=== PATIENT | male | born 1960 | race Caucasian/White ===

== ENCOUNTER 2019-07-16 14:19 | Inpatient (IN) | payer BC ==
[~2019-07-16] VITALS: Ht 185.4 cm; Wt 137.7 kg
[2019-07-16] MEDS ORDERED: SODIUM CHLORIDE FLUSH 10ML SYR IVF ONE (14:30)
[2019-07-16] MEDS ORDERED: THIAMINE 100MG TABLET PO ONE (14:30)
[2019-07-16] MEDS ORDERED: SODIUM CHLORIDE 0.9% 1,000ML IVBOLUS ONE ×2 (14:30→16:30)
--- NOTE | 2019-07-16 14:58 | NUR ---
PT UPRIGHT ON GURNEY AWAKE & COMFORTABLE, RESPONDS APPROP TO STAFF, HICCUPING BUT NAD, COMFORT MEASURES PROVIDED, AT BS, CALL LIGHT WITHIN REACH. 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
[2019-07-16] MEDS ORDERED: THIAMINE 100MG TABLET ONE (15:00)
[2019-07-16 15:06] LABS: BASOPHILS # (AUTO) 0.01 x10^3/uL (0-0.1); BASOPHILS % (AUTO) 0 % (0-1); EOSINOPHILS % (AUTO) 0 % (1-7); LYMPHOCYTES # (AUTO) 2.08 x10^3/uL (1-3.4); LYMPHOCYTES % (AUTO) 21 % (22-44); MD NO; MEAN CORPUSCULAR HEMOGLOBIN 28.8 pg (27.5-34.5); MEAN CORPUSCULAR HGB CONC 32.6 g/dL (33.2-36.2); MEAN CORPUSCULAR VOLUME 88.4 fL (81-97); MEAN PLATELET VOLUME 7.9 fL (7.4-10.4); MONOCYTES # (AUTO) 0.76 x10^3/uL (0.2-0.8); MONOCYTES % (AUTO) 8 % (2-9); NEUTROPHILS # (AUTO) 7.02 x10^3/uL (1.8-6.8); NEUTROPHILS % (AUTO) 71 % (42-75); PLATELET COUNT 303 x10^3/uL (130-400); RED BLOOD COUNT 5.33 x10^6/uL (4.38-5.82); RED CELL DISTRIBUTION WIDTH 14.7 % (9.4-14.8)
[2019-07-16 15:18] LABS: ALBUMIN 3.5 g/dL (3.4-5.0); ANION GAP 11 mmol/L (5-15); CALCIUM 8.6 mg/dL (8.5-10.1); CHLORIDE 100 mmol/L (98-107)
[2019-07-16 15:22] LABS: ALANINE AMINOTRANSFERASE 66 U/L (12-78); ALKALINE PHOSPHATASE 65 U/L (45-117); BILIRUBIN,TOTAL 2.6 mg/dL (0.2-1.0); CREATININE 1.09 mg/dL (0.7-1.3); TOTAL PROTEIN 7.7 g/dL (6.4-8.2)
--- NOTE | 2019-07-16 16:05 | NUR ---
PT REMAINS UPRIGHT ON GURNEY AWAKE & COMFORTABLE, RESPONDS APPROP TO STAFF, NAD, COMFORT MEASURES PROVIDED, AT BS, CALL LIGHT WITHIN REACH.
[2019-07-16] MEDS ORDERED: CEFTRIAXONE PMX 1GM/50ML 50 ML IVPB ONE (17:00)
[2019-07-16] MEDS ORDERED: AZITHROMYCIN 500 MG in SODIUM CHLORIDE 0.9% 250 ML IV ONE (17:00)
--- NOTE | 2019-07-16 17:05 | NUR ---
PT UPRIGHT ON GURNEY AWAKE & COMFORTABLE, ABLE TO DOZE OFF, RESPONDS APPROP TO STAFF, NAD, COMFORT MEASURES PROVIDED, AT BS, CALL LIGHT WITHIN REACH.
[2019-07-16] MEDS ORDERED: CEFTRIAXONE PMX 1GM/50ML 50 ML ONE (17:07)
[2019-07-16] MEDS ORDERED: LORazepam 2 MG/ML, 1ML ONE (17:08)
[2019-07-16] MEDS: LORazepam 2 MG/ML, 1ML IVPush PRN ×2 (17:11→17:52)
--- NOTE | 2019-07-16 17:44 | NUR ---
Pt to be admitted to [facility], room 491-2. Report called to Ankita.
[2019-07-16 17:53] LABS: ACETONE, SERUM Small (20mg/dL) mg/dL (Negative)
[2019-07-16 18:11] VITALS: BP 119/65
[2019-07-16] MEDS ORDERED: METO200T47 PO (18:38)
[2019-07-16] MEDS ORDERED: PRAV40TA2 PO (18:38)
[2019-07-16] MEDS ORDERED: GABA300C10 PO (18:38)
[2019-07-16] MEDS ORDERED: FAMO-79 PO (18:38)
[2019-07-16] MEDS ORDERED: EMPA10TA PO (18:38)
[2019-07-16] MEDS ORDERED: DEXTROSE 50%, 50ML SYRINGE IVPush PRN (19:00)
[2019-07-16] MEDS ORDERED: LORazepam 1MG TABLET PO PRN ×4 (19:00)
[2019-07-16] MEDS ORDERED: THIAMINE 200 MG, MVI ADULT 10 ML, FOLIC ACID 1 MG in D5%-0.9% NACL 1,000 ML IV SCH (19:00)
[2019-07-16] MEDS ORDERED: BISACODYL 10 MG SUPP PR PRN (19:00)
[2019-07-16] MEDS ORDERED: DOCUSATE 100 MG CAPSULE PO PRN (19:00)
[2019-07-16] MEDS ORDERED: DEXTROSE 4 GM TAB.CHEW PO PRN (19:00)
[2019-07-16] MEDS ORDERED: CHLORDIAZEPOXIDE 25 MG CAPSULE PO SCH (19:00)
[2019-07-16] MEDS ORDERED: GLUCAGON 1 MG IM PRN (19:00)
[2019-07-16] MEDS ORDERED: POLYETHYLENE GLYCOL 17 GM PACKET PO PRN (19:00)
[2019-07-16 19:58] LABS: TROPONIN I 0.613 ng/mL (0.000-0.045)
[2019-07-16] MEDS ORDERED: OMNIPAQUE 350 MG/ML, 100ML BOTTLE ONE (20:16)
[2019-07-16] MEDS: PRAVASTATIN 40 MG TABLET PO SCH (20:56)
[2019-07-16] MEDS: ENOXAPARIN 40 MG/0.4 ML SQ SCH (20:56)
[2019-07-16] MEDS: SODIUM CHLORIDE FLUSH 10ML SYR IVF SCH (20:57)
[2019-07-16] MEDS: CHLORDIAZEPOXIDE 25 MG CAPSULE PO SCH (20:57)
[2019-07-16] MEDS: INSULIN LISPRO 100 UNITS/ML, PEN SQ-INSULIN SCH (20:57)
[2019-07-16] MEDS ORDERED: FUROSEMIDE 20 MG/2 ML IV ONE (21:00)
[2019-07-17 01:55] LABS: TROPONIN I 0.519 ng/mL (0.000-0.045)
[2019-07-17] MEDS: CHLORDIAZEPOXIDE 25 MG CAPSULE PO SCH ×4 (02:14→19:43)
[2019-07-17 03:35] VITALS: BP 110/63
[2019-07-17] MEDS: METOPROLOL SUCCINATE 25 MG TAB.ER.24H PO SCH (06:00)
[2019-07-17] MEDS: LORazepam 0.5MG TABLET PO PRN ×2 (06:00→08:29)
[2019-07-17 06:25] LABS: BASOPHILS # (AUTO) 0.02 x10^3/uL (0-0.1); BASOPHILS % (AUTO) 0 % (0-1); EOSINOPHILS # (AUTO) 0.02 x10^3/uL (0-0.4); EOSINOPHILS % (AUTO) 0 % (1-7); LYMPHOCYTES # (AUTO) 3.13 x10^3/uL (1-3.4); LYMPHOCYTES % (AUTO) 32 % (22-44); MD NO; MEAN CORPUSCULAR HEMOGLOBIN 29.1 pg (27.5-34.5); MEAN CORPUSCULAR HGB CONC 32.8 g/dL (33.2-36.2); MEAN CORPUSCULAR VOLUME 88.8 fL (81-97); MEAN PLATELET VOLUME 7.8 fL (7.4-10.4); MONOCYTES # (AUTO) 0.75 x10^3/uL (0.2-0.8); MONOCYTES % (AUTO) 8 % (2-9); NEUTROPHILS # (AUTO) 5.73 x10^3/uL (1.8-6.8); NEUTROPHILS % (AUTO) 59 % (42-75); PLATELET COUNT 227 x10^3/uL (130-400); RED BLOOD COUNT 4.74 x10^6/uL (4.38-5.82); RED CELL DISTRIBUTION WIDTH 14.8 % (9.4-14.8)
[2019-07-17] MEDS: INSULIN LISPRO 100 UNITS/ML, PEN SQ-INSULIN SCH ×4 (07:00→20:55)
[2019-07-17 07:24] LABS: ALANINE AMINOTRANSFERASE 71 U/L (12-78); ANION GAP 13 mmol/L (5-15); CALCIUM 7.9 mg/dL (8.5-10.1); CHLORIDE 101 mmol/L (98-107); CREATININE 1.08 mg/dL (0.7-1.3)
[2019-07-17 07:28] LABS: ALKALINE PHOSPHATASE 54 U/L (45-117); BILIRUBIN,TOTAL 2.3 mg/dL (0.2-1.0); TOTAL PROTEIN 6.4 g/dL (6.4-8.2); TROPONIN I 0.489 ng/mL (0.000-0.045)
[2019-07-17 07:45] VITALS: BP 118/75
[2019-07-17] MEDS ORDERED: FAMOTIDINE 40 MG TABLET ONE ×2 (08:25→20:44)
[2019-07-17] MEDS: SODIUM CHLORIDE FLUSH 10ML SYR IVF SCH ×2 (08:31→20:55)
[2019-07-17] MEDS ORDERED: FAMOTIDINE 20 MG TABLET PO SCH (09:00)
[2019-07-17] MEDS: LORazepam 2 MG/ML, 1ML IV PRN ×5 (10:22→21:54)
[2019-07-17] MEDS ORDERED: LORazepam 2 MG/ML, 1ML IV PRN ×2 (10:30)
[2019-07-17 13:12] VITALS: BP 118/81
[2019-07-17] MEDS: CEFTRIAXONE PMX 1GM/50ML 50 ML IV SCH (17:01)
[2019-07-17] MEDS: ACETAMINOPHEN 325 MG TABLET PO PRN (17:21)
[2019-07-17] MEDS: ASPIRIN 81 MG TABLET EC PO SCH (17:30)
[2019-07-17] MEDS ORDERED: MAGNESIUM OXIDE 400 MG TABLET PO ONE (18:00)
[2019-07-17 20:08] VITALS: BP 149/86
[2019-07-17] MEDS: AZITHROMYCIN 500 MG in SODIUM CHLORIDE 0.9% 250 ML IV SCH (20:53)
[2019-07-17] MEDS: FAMOTIDINE 20 MG TABLET PO SCH (20:54)
[2019-07-17] MEDS: NEUTRA PHOS K 250 MG TABLET PO SCH (20:54)
[2019-07-17] MEDS: ENOXAPARIN 40 MG/0.4 ML SQ SCH (20:54)
[2019-07-17] MEDS: PRAVASTATIN 40 MG TABLET PO SCH (20:54)
[2019-07-17 23:49] VITALS: BP 128/86
[2019-07-18 01:00] VITALS: BP 114/79
[2019-07-18] MEDS: CHLORDIAZEPOXIDE 25 MG CAPSULE PO SCH ×4 (01:26→19:35)
[2019-07-18] MEDS: LORazepam 2 MG/ML, 1ML IV PRN ×5 (02:20→20:59)
[2019-07-18] MEDS: LABETALOL 5MG/ML, 20ML IVPush PRN ×3 (02:40→03:35)
[2019-07-18] MEDS: ASPIRIN 81 MG TABLET EC PO SCH (04:57)
[2019-07-18] MEDS: METOPROLOL SUCCINATE 25 MG TAB.ER.24H PO SCH (04:58)
[2019-07-18 04:59] VITALS: BP 104/66
[2019-07-18 05:52] LABS: ANION GAP 13 mmol/L (5-15); CALCIUM 8.3 mg/dL (8.5-10.1); CHLORIDE 99 mmol/L (98-107); CREATININE 0.95 mg/dL (0.7-1.3)
[2019-07-18 05:53] LABS: BASOPHILS # (AUTO) 0.01 x10^3/uL (0-0.1); BASOPHILS % (AUTO) 0 % (0-1); EOSINOPHILS % (AUTO) 0 % (1-7); LYMPHOCYTES # (AUTO) 1.11 x10^3/uL (1-3.4); LYMPHOCYTES % (AUTO) 9 % (22-44); MD NO; MEAN CORPUSCULAR HEMOGLOBIN 28.8 pg (27.5-34.5); MEAN CORPUSCULAR HGB CONC 31.9 g/dL (33.2-36.2); MEAN CORPUSCULAR VOLUME 90.2 fL (81-97); MONOCYTES # (AUTO) 0.84 x10^3/uL (0.2-0.8); MONOCYTES % (AUTO) 7 % (2-9); NEUTROPHILS # (AUTO) 10.97 x10^3/uL (1.8-6.8); NEUTROPHILS % (AUTO) 85 % (42-75); PLATELET COUNT 213 x10^3/uL (130-400); RED BLOOD COUNT 5.22 x10^6/uL (4.38-5.82); RED CELL DISTRIBUTION WIDTH 14.8 % (9.4-14.8)
[2019-07-18 06:04] LABS: TROPONIN I 0.193 ng/mL (0.000-0.045)
[2019-07-18] MEDS ORDERED: POTASSIUM CHLORIDE 20 MEQ TAB.ER.PRT PO ONE (06:30)
[2019-07-18 06:45] VITALS: BP 111/67
[2019-07-18] MEDS: INSULIN LISPRO 100 UNITS/ML, PEN SQ-INSULIN SCH ×4 (07:00→21:00)
[2019-07-18] MEDS ORDERED: FAMOTIDINE 40 MG TABLET ONE ×2 (08:04→22:01)
[2019-07-18] MEDS: NEUTRA PHOS K 250 MG TABLET PO SCH ×2 (08:10→22:10)
[2019-07-18] MEDS: SODIUM CHLORIDE FLUSH 10ML SYR IVF SCH ×2 (08:11→21:00)
[2019-07-18] MEDS: FAMOTIDINE 20 MG TABLET PO SCH ×2 (08:12→22:12)
[2019-07-18] MEDS ORDERED: METOPROLOL SUCCINATE 25 MG TAB.ER.24H PO ONE (09:00)
[2019-07-18 12:32] LABS: ALBUMIN 2.9 g/dL (3.4-5.0); BILIRUBIN, DIRECT 0.9 mg/dL (0.1-0.2)
[2019-07-18 12:34] LABS: BILIRUBIN,INDIRECT 2.2 mg/dL (0.0-2.0); BILIRUBIN,TOTAL 3.1 mg/dL (0.2-1.0); TOTAL PROTEIN 6.7 g/dL (6.4-8.2)
[2019-07-18 14:00] VITALS: BP 119/78
[2019-07-18] MEDS ORDERED: SODIUM CHLORIDE 0.9% 1,000 ML IV SCH (14:00)
[2019-07-18] MEDS ORDERED: metroNIDAZOLE 5 MG/ML INJ 500 MG in SYRINGE 1 EA IV SCH (14:01)
[2019-07-18] MEDS ORDERED: LABETALOL 5 MG/ML SYR. (IV ONLY) IVPush PRN (16:30)
[2019-07-18] MEDS: METRONIDAZOLE PMX 500MG/100ML 100 ML IVPB SCH (16:57)
[2019-07-18] MEDS: CEFTRIAXONE PMX 1GM/50ML 50 ML IV SCH (17:54)
[2019-07-18] MEDS: AZITHROMYCIN 500 MG in SODIUM CHLORIDE 0.9% 250 ML IV SCH (19:34)
[2019-07-18 21:27] VITALS: BP 109/77
[2019-07-18] MEDS: PRAVASTATIN 40 MG TABLET PO SCH (22:11)
[2019-07-18] MEDS: ENOXAPARIN 40 MG/0.4 ML SQ SCH (22:11)
[2019-07-19] MEDS: METRONIDAZOLE PMX 500MG/100ML 100 ML IVPB SCH ×3 (01:05→15:52)
[2019-07-19 02:52] VITALS: BP 115/74
[2019-07-19] MEDS: CHLORDIAZEPOXIDE 25 MG CAPSULE PO SCH ×3 (03:07→15:51)
[2019-07-19 06:00] VITALS: BP 111/73
[2019-07-19] MEDS ORDERED: METOPROLOL SUCCINATE 50 MG TAB.ER.24H PO SCH (06:00)
[2019-07-19] MEDS: ASPIRIN 81 MG TABLET EC PO SCH (06:29)
[2019-07-19 08:47] LABS: BASOPHILS % (AUTO) 0 % (0-1); EOSINOPHILS # (AUTO) 0.09 x10^3/uL (0-0.4); EOSINOPHILS % (AUTO) 1 % (1-7); LYMPHOCYTES # (AUTO) 1.55 x10^3/uL (1-3.4); LYMPHOCYTES % (AUTO) 12 % (22-44); MD NO; MEAN CORPUSCULAR HEMOGLOBIN 29.2 pg (27.5-34.5); MEAN CORPUSCULAR HGB CONC 32.8 g/dL (33.2-36.2); MEAN CORPUSCULAR VOLUME 88.9 fL (81-97); MEAN PLATELET VOLUME 7.9 fL (7.4-10.4); MONOCYTES # (AUTO) 0.74 x10^3/uL (0.2-0.8); MONOCYTES % (AUTO) 6 % (2-9); NEUTROPHILS # (AUTO) 10.92 x10^3/uL (1.8-6.8); NEUTROPHILS % (AUTO) 82 % (42-75); PLATELET COUNT 203 x10^3/uL (130-400); RED BLOOD COUNT 4.88 x10^6/uL (4.38-5.82); RED CELL DISTRIBUTION WIDTH 14.6 % (9.4-14.8)
[2019-07-19] MEDS: INSULIN LISPRO 100 UNITS/ML, PEN SQ-INSULIN SCH ×4 (09:11→21:00)
[2019-07-19] MEDS ORDERED: FAMOTIDINE 40 MG TABLET ONE ×2 (09:11→09:16)
[2019-07-19] MEDS: SODIUM CHLORIDE FLUSH 10ML SYR IVF SCH ×2 (09:12→21:41)
[2019-07-19] MEDS: FAMOTIDINE 20 MG TABLET PO SCH ×2 (09:25→21:41)
[2019-07-19 09:40] LABS: ALANINE AMINOTRANSFERASE 47 U/L (12-78); ALBUMIN 2.5 g/dL (3.4-5.0); ANION GAP 9 mmol/L (5-15); CALCIUM 8.1 mg/dL (8.5-10.1); CHLORIDE 102 mmol/L (98-107)
[2019-07-19 09:43] LABS: ALKALINE PHOSPHATASE 60 U/L (45-117); BILIRUBIN,TOTAL 2.7 mg/dL (0.2-1.0); TOTAL PROTEIN 6.1 g/dL (6.4-8.2)
[2019-07-19] MEDS: LORazepam 2 MG/ML, 1ML IV PRN ×2 (10:55→22:00)
[2019-07-19] MEDS ORDERED: HEPARIN 5,000 UNITS/ML, 1ML IV ONE ×2 (12:30→18:30)
[2019-07-19] MEDS ORDERED: HEPARIN 25,000 UNITS/500ML PMX 500 ML IV PRN (12:30)
[2019-07-19] MEDS: METOPROLOL TARTRATE 25 MG TABLET PO SCH ×2 (12:40→18:06)
[2019-07-19] MEDS: DIGOXIN 0.25 MG/ML, 2ML IVPush SCH ×2 (12:41→18:07)
[2019-07-19 13:56] LABS: CHOL/HDL RATIO 2.1; LDL/HDL RATIO 0.8 (0.5-3.0)
[2019-07-19 14:25] VITALS: BP 112/75
[2019-07-19] MEDS ORDERED: METOPROLOL SUCCINATE 25 MG TAB.ER.24H PO ONE (14:30)
[2019-07-19] MEDS: SODIUM CHLORIDE 0.9% 1,000 ML IV SCH (15:55)
[2019-07-19 16:04] VITALS: BP 112/74
[2019-07-19] MEDS ORDERED: LIDODERM 5% PATCH TD SCH (16:30)
[2019-07-19] MEDS: CEFTRIAXONE PMX 1GM/50ML 50 ML IV SCH (17:06)
[2019-07-19 19:45] VITALS: BP 102/64
[2019-07-19] MEDS: AZITHROMYCIN 500 MG in SODIUM CHLORIDE 0.9% 250 ML IV SCH (21:40)
[2019-07-19] MEDS: PRAVASTATIN 40 MG TABLET PO SCH (21:41)
[2019-07-19] MEDS: ATORVASTATIN 40 MG TABLET PO SCH (21:41)
[2019-07-20 00:09] VITALS: BP 100/62
[2019-07-20] MEDS: DIGOXIN 0.25 MG/ML, 2ML IVPush SCH (00:11)
[2019-07-20] MEDS: METRONIDAZOLE PMX 500MG/100ML 100 ML IVPB SCH ×3 (00:11→14:30)
[2019-07-20] MEDS: METOPROLOL TARTRATE 25 MG TABLET PO SCH ×4 (00:12→17:00)
[2019-07-20] MEDS: HEPARIN 5,000 UNITS/ML, 1ML IV PRN ×2 (01:39→10:34)
[2019-07-20 02:03] LABS: CLOSTRIDIUM DIFFICILE ANTIGEN NEGATIVE; CLOSTRIDIUM DIFFICILE TOXIN NEGATIVE (Negative)
[2019-07-20 05:26] VITALS: BP 105/72
[2019-07-20] MEDS: ASPIRIN 81 MG TABLET EC PO SCH (05:41)
[2019-07-20] MEDS: LORazepam 2 MG/ML, 1ML IV PRN ×3 (05:41→20:02)
[2019-07-20] MEDS: INSULIN LISPRO 100 UNITS/ML, PEN SQ-INSULIN SCH ×4 (07:00→21:00)
[2019-07-20] MEDS: SODIUM CHLORIDE 0.9% 1,000 ML IV SCH ×3 (08:00→14:31)
[2019-07-20 08:31] LABS: ANION GAP 7 mmol/L (5-15); BASOPHILS # (AUTO) 0.02 x10^3/uL (0-0.1); BASOPHILS % (AUTO) 0 % (0-1); CALCIUM 8.3 mg/dL (8.5-10.1); CHLORIDE 103 mmol/L (98-107); CREATININE 0.81 mg/dL (0.7-1.3); EOSINOPHILS # (AUTO) 0.29 x10^3/uL (0-0.4); EOSINOPHILS % (AUTO) 3 % (1-7); LYMPHOCYTES # (AUTO) 1.64 x10^3/uL (1-3.4); LYMPHOCYTES % (AUTO) 15 % (22-44); MD NO; MEAN CORPUSCULAR HEMOGLOBIN 29.1 pg (27.5-34.5); MEAN CORPUSCULAR HGB CONC 32.6 g/dL (33.2-36.2); MEAN CORPUSCULAR VOLUME 89.4 fL (81-97); MEAN PLATELET VOLUME 8.1 fL (7.4-10.4); MONOCYTES # (AUTO) 0.63 x10^3/uL (0.2-0.8); MONOCYTES % (AUTO) 6 % (2-9); NEUTROPHILS # (AUTO) 8.76 x10^3/uL (1.8-6.8); NEUTROPHILS % (AUTO) 77 % (42-75); PLATELET COUNT 196 x10^3/uL (130-400); RED BLOOD COUNT 4.84 x10^6/uL (4.38-5.82); RED CELL DISTRIBUTION WIDTH 15.1 % (9.4-14.8)
[2019-07-20] MEDS: SODIUM CHLORIDE FLUSH 10ML SYR IVF SCH ×2 (09:00→21:27)
[2019-07-20] MEDS: FAMOTIDINE 20 MG TABLET PO SCH ×2 (09:00→21:26)
[2019-07-20] MEDS ORDERED: REGADENOSON 0.4 MG/5 ML SYRINGE ONE (09:15)
[2019-07-20 12:55] VITALS: BP 112/72
[2019-07-20] MEDS: LORazepam 0.5MG TABLET PO PRN (13:53)
[2019-07-20] MEDS ORDERED: DIGOXIN 0.25 MG TABLET PO ONE (15:30)
[2019-07-20] MEDS: CEFTRIAXONE PMX 1GM/50ML 50 ML IV SCH (17:00)
[2019-07-20 19:39] VITALS: BP 102/72
[2019-07-20] MEDS: ATORVASTATIN 40 MG TABLET PO SCH (21:26)
[2019-07-20] MEDS: PRAVASTATIN 40 MG TABLET PO SCH (21:26)
[2019-07-20] MEDS: AZITHROMYCIN 500 MG in SODIUM CHLORIDE 0.9% 250 ML IV SCH (21:26)
[2019-07-20] MEDS: APIXABAN 5 MG TABLET PO SCH (21:26)
[2019-07-21] MEDS: METOPROLOL TARTRATE 25 MG TABLET PO SCH ×2 (00:16→06:29)
[2019-07-21] MEDS: LORazepam 2 MG/ML, 1ML IV PRN (00:16)
[2019-07-21] MEDS: SODIUM CHLORIDE 0.9% 1,000 ML IV SCH (00:16)
[2019-07-21] MEDS: METRONIDAZOLE PMX 500MG/100ML 100 ML IVPB SCH ×4 (00:16→23:11)
[2019-07-21 02:46] VITALS: BP 104/74
[2019-07-21 05:42] LABS: CALCIUM 8.3 mg/dL (8.5-10.1); CHLORIDE 104 mmol/L (98-107)
[2019-07-21 05:47] LABS: ANION GAP 5 mmol/L (5-15); CREATININE 0.93 mg/dL (0.7-1.3)
[2019-07-21] MEDS: LORazepam 0.5MG TABLET PO PRN (06:29)
[2019-07-21] MEDS: ASPIRIN 81 MG TABLET EC PO SCH (06:29)
[2019-07-21 07:13] LABS: BASOPHILS # (AUTO) 0.03 x10^3/uL (0-0.1); BASOPHILS % (AUTO) 0 % (0-1); EOSINOPHILS # (AUTO) 0.34 x10^3/uL (0-0.4); EOSINOPHILS % (AUTO) 4 % (1-7); LYMPHOCYTES # (AUTO) 1.79 x10^3/uL (1-3.4); LYMPHOCYTES % (AUTO) 19 % (22-44); MD NO; MEAN CORPUSCULAR HEMOGLOBIN 28.9 pg (27.5-34.5); MEAN CORPUSCULAR VOLUME 90.1 fL (81-97); MONOCYTES % (AUTO) 7 % (2-9); NEUTROPHILS # (AUTO) 6.65 x10^3/uL (1.8-6.8); NEUTROPHILS % (AUTO) 70 % (42-75); PLATELET COUNT 216 x10^3/uL (130-400); RED BLOOD COUNT 4.64 x10^6/uL (4.38-5.82); RED CELL DISTRIBUTION WIDTH 15.3 % (9.4-14.8)
[2019-07-21] MEDS: INSULIN LISPRO 100 UNITS/ML, PEN SQ-INSULIN SCH ×4 (07:27→20:33)
[2019-07-21 07:48] VITALS: BP 103/73
[2019-07-21] MEDS: SODIUM CHLORIDE FLUSH 10ML SYR IVF SCH ×2 (08:15→20:32)
[2019-07-21] MEDS: APIXABAN 5 MG TABLET PO SCH ×2 (08:15→20:32)
[2019-07-21] MEDS: FAMOTIDINE 20 MG TABLET PO SCH ×2 (08:15→20:32)
[2019-07-21] MEDS: METOPROLOL SUCCINATE 100 MG TAB.ER.24H PO SCH (12:28)
[2019-07-21] MEDS: ACETAMINOPHEN 325 MG TABLET PO PRN (12:58)
[2019-07-21] MEDS: ONDANSETRON 2MG/ML, 2ML IVPush PRN (13:20)
[2019-07-21 14:05] VITALS: BP 119/82
[2019-07-21] MEDS: CEFTRIAXONE PMX 1GM/50ML 50 ML IV SCH (17:49)
[2019-07-21 19:41] VITALS: BP 122/88
[2019-07-21] MEDS: ATORVASTATIN 40 MG TABLET PO SCH (20:32)
[2019-07-21] MEDS: AZITHROMYCIN 500 MG in SODIUM CHLORIDE 0.9% 250 ML IV SCH (20:32)
[2019-07-22 02:53] VITALS: BP 114/69
[2019-07-22] MEDS: METOPROLOL SUCCINATE 100 MG TAB.ER.24H PO SCH (06:20)
[2019-07-22] MEDS: ASPIRIN 81 MG TABLET EC PO SCH (06:20)
[2019-07-22 07:18] LABS: BASOPHILS # (AUTO) 0.03 x10^3/uL (0-0.1); BASOPHILS % (AUTO) 0 % (0-1); EOSINOPHILS # (AUTO) 0.25 x10^3/uL (0-0.4); EOSINOPHILS % (AUTO) 3 % (1-7); LYMPHOCYTES # (AUTO) 2.63 x10^3/uL (1-3.4); LYMPHOCYTES % (AUTO) 30 % (22-44); MD NO; MEAN CORPUSCULAR HEMOGLOBIN 29.2 pg (27.5-34.5); MEAN CORPUSCULAR HGB CONC 32.6 g/dL (33.2-36.2); MEAN CORPUSCULAR VOLUME 89.6 fL (81-97); MEAN PLATELET VOLUME 7.8 fL (7.4-10.4); MONOCYTES # (AUTO) 0.87 x10^3/uL (0.2-0.8); MONOCYTES % (AUTO) 10 % (2-9); NEUTROPHILS # (AUTO) 5.05 x10^3/uL (1.8-6.8); NEUTROPHILS % (AUTO) 57 % (42-75); PLATELET COUNT 228 x10^3/uL (130-400); RED BLOOD COUNT 4.86 x10^6/uL (4.38-5.82)
[2019-07-22 07:31] LABS: ALANINE AMINOTRANSFERASE 84 U/L (12-78); ALBUMIN 2.4 g/dL (3.4-5.0); ANION GAP 5 mmol/L (5-15); CALCIUM 8.6 mg/dL (8.5-10.1); CHLORIDE 103 mmol/L (98-107); CREATININE 1.16 mg/dL (0.7-1.3)
[2019-07-22 07:33] LABS: ALKALINE PHOSPHATASE 93 U/L (45-117); BILIRUBIN,TOTAL 1.1 mg/dL (0.2-1.0); TOTAL PROTEIN 6.2 g/dL (6.4-8.2)
[2019-07-22 07:45] VITALS: BP 106/74
[2019-07-22] MEDS: INSULIN LISPRO 100 UNITS/ML, PEN SQ-INSULIN SCH ×4 (08:17→21:53)
[2019-07-22] MEDS: SODIUM CHLORIDE FLUSH 10ML SYR IVF SCH ×2 (08:18→21:53)
[2019-07-22] MEDS: FAMOTIDINE 20 MG TABLET PO SCH ×2 (08:18→20:22)
[2019-07-22] MEDS: METRONIDAZOLE PMX 500MG/100ML 100 ML IVPB SCH ×3 (08:18→22:18)
[2019-07-22] MEDS: APIXABAN 5 MG TABLET PO SCH ×2 (08:18→20:22)
[2019-07-22] MEDS ORDERED: PROPOFOL 10 MG/ML, 20ML ONE (11:17)
[2019-07-22 13:51] VITALS: BP 114/78
[2019-07-22] MEDS: ACETAMINOPHEN 325 MG TABLET PO PRN ×2 (14:56→22:22)
[2019-07-22] MEDS: CEFTRIAXONE PMX 1GM/50ML 50 ML IV SCH (16:44)
[2019-07-22] MEDS: AZITHROMYCIN 500 MG in SODIUM CHLORIDE 0.9% 250 ML IV SCH (20:22)
[2019-07-22] MEDS: ATORVASTATIN 40 MG TABLET PO SCH (20:22)
[2019-07-22 20:42] VITALS: BP 113/81
[2019-07-23] MEDS: METOPROLOL SUCCINATE 100 MG TAB.ER.24H PO SCH (04:23)
[2019-07-23] MEDS: ASPIRIN 81 MG TABLET EC PO SCH (04:23)
[2019-07-23 04:41] VITALS: BP 101/70
[2019-07-23 06:22] LABS: BASOPHILS # (AUTO) 0.01 x10^3/uL (0-0.1); BASOPHILS % (AUTO) 0 % (0-1); EOSINOPHILS # (AUTO) 0.17 x10^3/uL (0-0.4); EOSINOPHILS % (AUTO) 2 % (1-7); LYMPHOCYTES # (AUTO) 3.75 x10^3/uL (1-3.4); LYMPHOCYTES % (AUTO) 36 % (22-44); MD NO; MEAN CORPUSCULAR HEMOGLOBIN 29.1 pg (27.5-34.5); MEAN CORPUSCULAR HGB CONC 32.6 g/dL (33.2-36.2); MEAN CORPUSCULAR VOLUME 89.2 fL (81-97); MEAN PLATELET VOLUME 8.1 fL (7.4-10.4); MONOCYTES # (AUTO) 1.22 x10^3/uL (0.2-0.8); MONOCYTES % (AUTO) 12 % (2-9); NEUTROPHILS % (AUTO) 50 % (42-75); PLATELET COUNT 250 x10^3/uL (130-400); RED BLOOD COUNT 5.11 x10^6/uL (4.38-5.82); RED CELL DISTRIBUTION WIDTH 15.7 % (9.4-14.8)
[2019-07-23 06:35] LABS: CHLORIDE 103 mmol/L (98-107)
[2019-07-23 06:42] LABS: ALANINE AMINOTRANSFERASE 93 U/L (12-78); ALBUMIN 2.6 g/dL (3.4-5.0); ALKALINE PHOSPHATASE 91 U/L (45-117); ANION GAP 6 mmol/L (5-15); BILIRUBIN,TOTAL 1.1 mg/dL (0.2-1.0); CALCIUM 8.7 mg/dL (8.5-10.1); CREATININE 1.27 mg/dL (0.7-1.3); TOTAL PROTEIN 6.8 g/dL (6.4-8.2)
[2019-07-23] MEDS: METRONIDAZOLE PMX 500MG/100ML 100 ML IVPB SCH ×3 (07:27→23:43)
[2019-07-23 07:58] VITALS: BP 131/78
[2019-07-23] MEDS: APIXABAN 5 MG TABLET PO SCH ×2 (09:24→20:34)
[2019-07-23] MEDS: TAMSULOSIN 0.4 MG CAP.ER.24H PO SCH (09:24)
[2019-07-23] MEDS: FAMOTIDINE 20 MG TABLET PO SCH ×2 (09:24→20:34)
[2019-07-23] MEDS: SODIUM CHLORIDE FLUSH 10ML SYR IVF SCH ×2 (09:24→20:36)
[2019-07-23] MEDS: INSULIN LISPRO 100 UNITS/ML, PEN SQ-INSULIN SCH ×4 (09:25→20:35)
[2019-07-23 13:38] VITALS: BP 104/72
[2019-07-23] MEDS: FINASTERIDE 5 MG TABLET PO SCH (15:27)
[2019-07-23] MEDS: CEFTRIAXONE PMX 1GM/50ML 50 ML IV SCH (17:20)
[2019-07-23 19:41] VITALS: BP 105/74
[2019-07-23] MEDS: ATORVASTATIN 40 MG TABLET PO SCH (20:34)
[2019-07-23] MEDS: AZITHROMYCIN 500 MG in SODIUM CHLORIDE 0.9% 250 ML IV SCH (20:59)
[2019-07-23] MEDS: ACETAMINOPHEN 325 MG TABLET PO PRN (22:36)
[2019-07-23] MEDS: ONDANSETRON 2MG/ML, 2ML IVPush PRN (22:36)
[2019-07-24] MEDS ORDERED: TEMAZEPAM 15 MG CAPSULE PO PRN (01:00)
[2019-07-24 01:35] VITALS: BP 100/73
[2019-07-24] MEDS: METOPROLOL SUCCINATE 100 MG TAB.ER.24H PO SCH (05:37)
[2019-07-24] MEDS: ASPIRIN 81 MG TABLET EC PO SCH (05:37)
[2019-07-24 06:21] LABS: ANION GAP 9 mmol/L (5-15); CALCIUM 8.7 mg/dL (8.5-10.1); CHLORIDE 103 mmol/L (98-107)
[2019-07-24] MEDS: INSULIN LISPRO 100 UNITS/ML, PEN SQ-INSULIN SCH ×2 (07:00→11:00)
[2019-07-24] MEDS: METRONIDAZOLE PMX 500MG/100ML 100 ML IVPB SCH (07:37)
[2019-07-24 07:50] VITALS: BP 89/58
[2019-07-24] MEDS: FINASTERIDE 5 MG TABLET PO SCH (08:38)
[2019-07-24] MEDS: TAMSULOSIN 0.4 MG CAP.ER.24H PO SCH (08:38)
[2019-07-24] MEDS: FAMOTIDINE 20 MG TABLET PO SCH (08:38)
[2019-07-24] MEDS: SODIUM CHLORIDE FLUSH 10ML SYR IVF SCH (08:38)
[2019-07-24] MEDS: APIXABAN 5 MG TABLET PO SCH (08:38)
[2019-07-24 09:25] VITALS: BP 114/78
[2019-07-24] MEDS ORDERED: FINA5TAB4 PO (10:13)
[2019-07-24] MEDS ORDERED: ATOR40TA78 PO (10:13)
[2019-07-24] MEDS ORDERED: APIX5TAB PO (10:13)
[2019-07-24] MEDS ORDERED: METO-95 PO (10:13)
[2019-07-24] MEDS ORDERED: POLY17PO5 PO (10:13)
[2019-07-24] MEDS ORDERED: ASPI81TA45 PO (10:13)
[2019-07-24] MEDS ORDERED: TAMS-11 PO (10:13)
[2019-07-24] MEDS ORDERED: ACET325T26 PO (10:13)
[2019-07-24] MEDS ORDERED: METR500T PO (10:42)
[2019-07-24] MEDS ORDERED: CEFD300C37 PO (10:42)
== END 2019-07-24 13:15 | disposition home or self-care (01) | DRG 291 ==
LOC: ED 16:54 → EDIP 16:55 → ED 17:04 → SUATTDRO 17:23 → 4EST 18:03 → 5SO 07-20 18:50 → DCLOUNGE 07-24 12:56
PROVIDERS: ADMIT Internal Medicine; ATTEND Hospitalist
PROC: B246ZZ4 Ultrasonography of Right and Left Heart, Transesophageal (ICD-10-PCS; 2019-07-21)
PROC: 5A2204Z Restoration of Cardiac Rhythm, Single (ICD-10-PCS; principal; 2019-07-21 12:00)
DX: I11.0 Hypertensive heart disease with heart failure (principal); J18.9 Pneumonia, unspecified organism; J96.01 Acute respiratory failure with hypoxia; D68.69 Other thrombophilia; E87.1 Hypo-osmolality and hyponatremia; F10.239 Alcohol dependence with withdrawal, unspecified; E87.2 Acidosis; K80.00 Calculus of gallbladder with acute cholecystitis without obstruction; Z68.41 Body mass index [BMI] 40.0-44.9, adult; I48.92 Unspecified atrial flutter; I50.41 Acute combined systolic (congestive) and diastolic (congestive) heart failure; F10.229 Alcohol dependence with intoxication, unspecified; I42.9 Cardiomyopathy, unspecified; E11.9 Type 2 diabetes mellitus without complications; E78.5 Hyperlipidemia, unspecified; F17.210 Nicotine dependence, cigarettes, uncomplicated; G47.30 Sleep apnea, unspecified; I20.8 Other forms of angina pectoris; K82.8 Other specified diseases of gallbladder; R33.8 Other retention of urine; E66.9 Obesity, unspecified; I95.9 Hypotension, unspecified; R00.0 Tachycardia, unspecified; R53.81 Other malaise; R74.0 Nonspecific elevation of levels of transaminase and lactic acid dehydrogenase [LDH]; Z80.0 Family history of malignant neoplasm of digestive organs; Z90.49 Acquired absence of other specified parts of digestive tract
CPT/HCPCS: 36415; 71045; 71275; 76700; 78226; 78452; 80048; 80053; 80061; 80076; 80307; 82010; 82150; 82962; 83036; 83605; 83690; 83735; 83880; 84100; 84145; 84484; 85025; 85520; 86704; 86706; 86708; 86803; 87040; 87324; 87340; 93005; 93017; 93306; 93312; 93321; 93325; 96361; 96365; G0378; J0456; J0696; J1644; J1650; J2405; J2704; J2785; Q9967; A9502; A9537; C9898; J1160; J1815; J1940; J2060; J7030; J7050